=== PATIENT | male | born 1990 | race Two or more races ===

== ENCOUNTER → 2017-03-04 | Outpatient (REF) | payer OTHER | LOC: M SMT 13:48 | PROVIDERS: ATTEND Urology | DX: Z30.09 Encounter for other general counseling and advice on contraception (principal) ==

== ENCOUNTER 2017-06-19 12:14 | Inpatient (IN) | payer OTHER ==
[2017-06-19 13:34] LABS: HEMATOCRIT 47.2 % (42.0-52.0); HEMOGLOBIN 15.8 g/dl (14.0-18.0); MEAN CORPUSCULAR HEMOGLOBIN 29.5 pg (27.0-33.0); MEAN CORPUSCULAR HGB CONC 33.5 g/dl (32.0-36.5); MEAN CORPUSCULAR VOLUME 88.2 fl (80.0-96.0); PLATELET COUNT, AUTOMATED 232 10^3/uL (150-450); RED BLOOD COUNT 5.35 10^6/uL (4.30-6.10); RED CELL DISTRIBUTION WIDTH 11.9 % (11.5-14.5); WHITE BLOOD COUNT 5.6 10^3/uL (4.0-10.0)
[2017-06-19 14:05] LABS: AMPHETAMINES LEVEL URINE NEGATIVE (NEGATIVE); BARBITURATES URINE NEGATIVE (NEGATIVE); BENZODIAZEPINES URINE NEGATIVE (NEGATIVE); CANNABINOIDS URINE NEGATIVE (NEGATIVE); COCAINE METABOLITE URINE NEGATIVE (NEGATIVE); METHADONE URINE NEGATIVE (NEGATIVE); OPIATES URINE NEGATIVE (NEGATIVE); PHENCYCLIDINE URINE NEGATIVE (NEGATIVE)
[2017-06-19 14:14] LABS: ALBUMIN 4.7 GM/DL (3.2-5.2); ALBUMIN/GLOBULIN RATIO 1.47 (1.00-1.93); ALKALINE PHOSPHATASE 61 U/L (45-117); ALT/SGPT 109 U/L (12-78); ANION GAP 6 MEQ/L (8-16); AST/SGOT 132 U/L (7-37); BILIRUBIN,DIRECT < 0.1 MG/DL (0.0-0.2); BILIRUBIN,TOTAL 0.3 MG/DL (0.2-1.0); BLOOD UREA NITROGEN 13 MG/DL (7-18); CALCIUM LEVEL 8.9 MG/DL (8.5-10.1); CARBON DIOXIDE LEVEL 30 MEQ/L (21-32); CHLORIDE LEVEL 104 MEQ/L (98-107); CREATININE FOR GFR 0.87 MG/DL (0.70-1.30); GLOMERULAR FILTRATION RATE > 60.0 (>60); GLUCOSE, FASTING 83 MG/DL (70-100); SALICYLATE LEVEL < 1.7 MG/DL (5.0-30.0); SODIUM LEVEL 140 MEQ/L (136-145); TOTAL PROTEIN 7.9 GM/DL (6.4-8.2)
[2017-06-19 14:15] LABS: ACETAMINOPHEN LEVEL < 2.0 UG/ML (10.0-30.0); ETHYL ALCOHOL (ETHANOL) < 0.003 % (0.000-0.010)
[2017-06-19] MEDS ORDERED: MOM 30ML SUSPENSION UDC PO (15:45)
[2017-06-19] MEDS ORDERED: ACETAMINOPHEN TAB 650MG DOSE (2X325MG) PO (15:45)
[2017-06-20] MEDS: ESCITALOPRAM OXALATE 5MG TABLET (LEXAPRO) PO (09:41)
[2017-06-20] MEDS: traZODone 50 MG TAB PO (21:50)
[2017-06-21 07:33] LABS: ALBUMIN 4.5 GM/DL (3.2-5.2); ALKALINE PHOSPHATASE 60 U/L (45-117); ALT/SGPT 98 U/L (12-78); ANION GAP 6 MEQ/L (8-16); AST/SGOT 60 U/L (7-37); BILIRUBIN,TOTAL 0.8 MG/DL (0.2-1.0); BLOOD UREA NITROGEN 17 MG/DL (7-18); CALCIUM LEVEL 9.4 MG/DL (8.5-10.1); CARBON DIOXIDE LEVEL 33 MEQ/L (21-32); CHLORIDE LEVEL 101 MEQ/L (98-107); CREATININE FOR GFR 1.01 MG/DL (0.70-1.30); GLOMERULAR FILTRATION RATE > 60.0 (>60); GLUCOSE, FASTING 89 MG/DL (70-100); POTASSIUM SERUM 4.9 MEQ/L (3.5-5.1); SODIUM LEVEL 140 MEQ/L (136-145); TOTAL PROTEIN 7.5 GM/DL (6.4-8.2)
[2017-06-21] MEDS: ESCITALOPRAM OXALATE 5MG TABLET (LEXAPRO) PO (08:49)
[2017-06-21 13:27] LABS: HEPATITIS B SURFACE ANTIGEN NEGATIVE (NEGATIVE)
[2017-06-21 13:54] LABS: HEPATITIS C VIRUS ABY INDEX 0.1 INDEX (<0.8)
[2017-06-21 13:54] LABS: HEPATITIS B CORE ANTIBODY IGM NEGATIVE (NEGATIVE)
[2017-06-21 13:56] LABS: HEPATITIS A ANTIBODY IGM NEGATIVE (NEGATIVE)
[2017-06-21] MEDS: traZODone 100 MG TAB PO (22:16)
[2017-06-22] MEDS: ESCITALOPRAM OXALATE 10 MG TAB (LEXAPRO) PO (08:19)
[2017-06-22] MEDS: traZODone 100 MG TAB PO (23:31)
[2017-06-23] MEDS: ESCITALOPRAM OXALATE 10 MG TAB (LEXAPRO) PO (09:35)
[2017-06-23] MEDS: traZODone 50 MG TAB PO (22:35)
[2017-06-24 07:12] LABS: ALBUMIN 4.1 GM/DL (3.2-5.2); ALBUMIN/GLOBULIN RATIO 1.52 (1.00-1.93); ALKALINE PHOSPHATASE 53 U/L (45-117); ALT/SGPT 63 U/L (12-78); AST/SGOT 23 U/L (7-37); BILIRUBIN,DIRECT 0.1 MG/DL (0.0-0.2); BILIRUBIN,TOTAL 0.6 MG/DL (0.2-1.0); TOTAL PROTEIN 6.8 GM/DL (6.4-8.2)
[2017-06-24] MEDS: ESCITALOPRAM OXALATE 10 MG TAB (LEXAPRO) PO (07:57)
[2017-06-24] MEDS: hydrOXYzine 25 MG TAB PO (15:47)
[2017-06-24] MEDS: traZODone 50 MG TAB PO (21:37)
[2017-06-25] MEDS: ESCITALOPRAM OXALATE 10 MG TAB (LEXAPRO) PO (08:11)
== END 2017-06-25 10:30 | disposition home or self-care (01) | DRG 882 ==
LOC: M ED 12:14 → M ED INP 15:43 → M PSY 17:20
PROVIDERS: Psychiatry & Neurology Psychiatry
DX: F43.23 Adjustment disorder with mixed anxiety and depressed mood (principal); G47.00 Insomnia, unspecified; F41.0 Panic disorder [episodic paroxysmal anxiety]; Z91.5 Personal history of self-harm; Z81.8 Family history of other mental and behavioral disorders

== ENCOUNTER → 2017-08-01 | Outpatient (REF) | payer OTHER ==
[2017-08-01 11:13] LABS: IMMMOTILE SPERM CENTRIFUGED ABSENT (ABSENT); IMMOTILE SPERM ABSENT (ABSENT); MOTILE SPERM ABSENT (ABSENT); MOTILE SPERM CENTRIFUGED ABSENT (ABSENT); SEMEN APPEARANCE OPAQUE (OPAQUE); SEMEN VISCOSITY LIQUID (LIQUID); SEMEN VOLUME 3.2 ml (4.0-5.0); WBC CONCENTRATION <=1 M/ml (<=1 M/ml)
== END ==
LOC: M SMT 10:44
DX: Z30.09 Encounter for other general counseling and advice on contraception (principal)